=== PATIENT | female | born 1965 | race Hispanic/Latino ===

== ENCOUNTER 2018-05-11 14:40 | Outpatient (CLI) | payer OTHER ==
--- NOTE | 2018-05-11 15:53 | RAD ---
LEFT SHOULDER THREE VIEWS: HISTORY: Shoulder pain. FINDINGS: There are mild AC joint hypertrophic changes present. The glenohumeral joint space appears fairly no rmal. There is some questionable subchondral cystic change along the posterior margin of the glenoid . I am not certain how much of this is just overlap with the humeral head. If internal derangement is clinically suspected, then MRI may be helpful in assessment, particularly if there is any suspicio n of posterior labral abnormality. IMPRESSION: Arthritic changes, as discussed above. POS: [facility]
== END 2018-05-11 14:41 | disposition home or self-care (01) ==
LOC: RAD-FRANK 14:40
PROVIDERS: ATTEND Nurse Practitioner Family
DX: M25.512 Pain in left shoulder (principal); G89.29 Other chronic pain; M19.012 Primary osteoarthritis, left shoulder

== ENCOUNTER 2020-09-09 15:44 | Outpatient (CLI) | payer OTHER | END 2020-09-09 15:45 | disposition home or self-care (01) | LOC: BICMAMMO 15:44 | PROVIDERS: ATTEND Nurse Practitioner Family | DX: Z12.31 Encounter for screening mammogram for malignant neoplasm of breast (principal) | CPT/HCPCS: 77063; 77067 ==